=== PATIENT | female | born 2000 | race Two or more races ===

== ENCOUNTER 2022-04-01 11:24 | Outpatient (CLI) | payer OTHER | END 2022-04-01 14:49 | disposition home or self-care (01) | LOC: PRENATAL 11:24 | PROVIDERS: ATTEND Obstetrics & Gynecology Maternal & Fetal Medicine | DX: O35.9XX0 Maternal care for (suspected) fetal abnormality and damage, unspecified, not applicable or unspecified (principal); O35.3XX0 Maternal care for (suspected) damage to fetus from viral disease in mother, not applicable or unspecified; Z3A.20 20 weeks gestation of pregnancy ==

== ENCOUNTER 2022-05-11 12:49 | Outpatient (CLI) | payer OTHER | END 2022-05-12 10:51 | disposition home or self-care (01) | LOC: OBS/DEL 12:49 | PROVIDERS: ATTEND Obstetrics & Gynecology | DX: O26.892 Other specified pregnancy related conditions, second trimester (principal); Z3A.25 25 weeks gestation of pregnancy; E16.1 Other hypoglycemia ==

== ENCOUNTER 2022-05-28 21:59 | Emergency (ER) | payer OTHER ==
[~2022-05-28] VITALS: Ht 160 cm; Wt 70.8 kg
== END 2022-05-29 03:10 | disposition home or self-care (01) ==
LOC: ER 21:59
DX: O26.893 Other specified pregnancy related conditions, third trimester (principal); Z3A.28 28 weeks gestation of pregnancy; G44.209 Tension-type headache, unspecified, not intractable

== ENCOUNTER 2022-07-22 22:33 | Outpatient (CLI) | payer OTHER | END 2022-07-23 10:59 | disposition home or self-care (01) | LOC: OBS/DEL 22:33 | PROVIDERS: ATTEND Obstetrics & Gynecology | DX: O36.8130 Decreased fetal movements, third trimester, not applicable or unspecified (principal); O41.03X0 Oligohydramnios, third trimester, not applicable or unspecified; Z3A.36 36 weeks gestation of pregnancy ==

== ENCOUNTER 2022-08-09 15:30 | Inpatient (IN) | payer OTHER ==
[~2022-08-09] VITALS: Ht 160 cm; Wt 74.4 kg
[2022-08-17] MEDS ORDERED: PRENATAL CAPLE1 EAC1 PO (09:19)
== END 2022-08-19 12:27 | disposition home or self-care (01) | DRG 807 ==
LOC: LDR 08-17 07:29 → OB/GYN 08-17 15:30
PROVIDERS: ADMIT Obstetrics & Gynecology; ATTEND Obstetrics & Gynecology
PROC: 10E0XZZ Delivery of Products of Conception, External Approach (ICD-10-PCS; principal; 2022-08-17)
PROC: 0KQM0ZZ Repair Perineum Muscle, Open Approach (ICD-10-PCS; 2022-08-17)
PROC: 4A1HXCZ Monitoring of Products of Conception, Cardiac Rate, External Approach (ICD-10-PCS; 2022-08-17)
DX: O70.1 Second degree perineal laceration during delivery (principal); Z37.0 Single live birth; O99.824 Streptococcus B carrier state complicating childbirth; Z3A.39 39 weeks gestation of pregnancy; Z20.822 Contact with and (suspected) exposure to COVID-19

== ENCOUNTER 2023-01-09 21:41 | Emergency (ER) | payer OTHER ==
[~2023-01-09] VITALS: Ht 160 cm; Wt 68.5 kg
[~2023-01-09 21:41] MED LIST: PRENATAL CAPLE1 EAC1 PO
[2023-01-10] MEDS ORDERED: ZITHROMAX500 MG PO (00:01)
== END 2023-01-10 00:08 | disposition home or self-care (01) ==
LOC: ER 21:41
PROVIDERS: General Practice
DX: B34.9 Viral infection, unspecified (principal); R10.9 Unspecified abdominal pain; Z20.822 Contact with and (suspected) exposure to COVID-19

== ENCOUNTER 2024-08-23 08:44 | Outpatient (CLI) | payer OTHER ==
[~2024-08-23 08:44] MED LIST changes: +ZITHROMAX500 MG PO
== END 2024-08-23 08:47 | disposition home or self-care (01) ==
LOC: PRENATAL 08:44
PROVIDERS: ATTEND Obstetrics & Gynecology Maternal & Fetal Medicine
DX: O36.80X0 Pregnancy with inconclusive fetal viability, not applicable or unspecified (principal); O26.859 Spotting complicating pregnancy, unspecified trimester; O26.899 Other specified pregnancy related conditions, unspecified trimester; Z3A.09 9 weeks gestation of pregnancy

== ENCOUNTER 2024-09-12 14:20 | Outpatient (CLI) | payer OTHER | END 2024-09-12 14:23 | disposition home or self-care (01) | LOC: PRENATAL 14:20 | PROVIDERS: ATTEND Obstetrics & Gynecology Maternal & Fetal Medicine | DX: O36.80X0 Pregnancy with inconclusive fetal viability, not applicable or unspecified (principal); Z36.82 Encounter for antenatal screening for nuchal translucency; Z14.8 Genetic carrier of other disease; Z3A.12 12 weeks gestation of pregnancy ==

== ENCOUNTER → 2024-11-05 09:37 | Outpatient (CLI) | payer OTHER | END | disposition home or self-care (01) | LOC: PRENATAL 09:37 | PROVIDERS: ATTEND Obstetrics & Gynecology Maternal & Fetal Medicine | DX: O44.00 Complete placenta previa NOS or without hemorrhage, unspecified trimester (principal); O28.3 Abnormal ultrasonic finding on antenatal screening of mother; Z3A.20 20 weeks gestation of pregnancy ==

== ENCOUNTER → 2025-01-01 10:05 | Outpatient (CLI) | payer OTHER | END | disposition home or self-care (01) | LOC: PRENATAL 10:05 | PROVIDERS: ATTEND Obstetrics & Gynecology Maternal & Fetal Medicine | DX: O26.849 Uterine size-date discrepancy, unspecified trimester (principal); O28.3 Abnormal ultrasonic finding on antenatal screening of mother; Z3A.28 28 weeks gestation of pregnancy ==

== ENCOUNTER 2025-03-14 14:15 | Inpatient (IN) | payer OTHER ==
[~2025-03-14] VITALS: Ht 160 cm; Wt 3.2 kg
[2025-03-19 08:39] VITALS: BP 114/75
[2025-03-19 08:48] VITALS: BP 114/72
[2025-03-19 09:15] VITALS: BP 108/71
[2025-03-19] MEDS ORDERED: OXYTOCIN 500 ML IV SCH (09:15)
[2025-03-19] MEDS ORDERED: RINGERS SOLUTION,LACTATED 1,000 ML IV SCH (09:15)
[2025-03-19] MEDS ORDERED: MORPHINE SULFATE 4 MG/ML CARTRIDGE IV ONE (09:15)
[2025-03-19 09:35] LABS: BASO % 0.5 % (0.1-1.2); EOS # 0.27 (0.04-0.54); EOS % 2.4 % (0.7-7.0); LYMPH # 2.71 (1.18-3.74); LYMPH % 24.4 % (19.3-53.1); MEAN PLATELET VOLUME 11.90 fl (9.4-12.4); MONO # 0.57 (0.24-0.82); MONO % 5.1 % (4.7-12.5); NEUT # 7.46 (1.56-6.13); NEUT % 67.2 % (34.0-71.1); RED CELL DISTRIBUTION WIDTH 13.2 % (11.6-14.4)
[2025-03-19 09:50] LABS: URINE APPEARANCE Clear; URINE BILIRRUBIN Negative (NEGATIVE); URINE BLOOD Negative; URINE COLOR Yellow; URINE GLUCOSE Negative (NEGATIVE); URINE KETONE Trace (NEGATIVE); URINE LEUKOCYTE Negative; URINE NITRATE Negative; URINE PROTEIN Negative (NEGATIVE); URINE UROBILINOGEN 0.2 E.U./dl
[2025-03-19 09:56] LABS: URINE BACTERIA 1547.7 uL (0.0-1933); URINE EPITHELIAL CELLS 29.8 uL (0.0-38.8); URINE RBC 4.1 uL (0.0-20.8); URINE WBC 15.2 uL (0.0-23.2)
[2025-03-19 10:02] LABS: URINE CAST 0.14 uL (0.0-1.40)
[2025-03-19 10:03] LABS: INR 1.01
[2025-03-19 12:25] VITALS: BP 120/61
[2025-03-19 15:40] VITALS: BP 129/69
[2025-03-19] MEDS ORDERED: OXYTOCIN 10 UNITS/ML VIAL ONE (20:09)
[2025-03-19] MEDS ORDERED: ERYTHROMYCIN BASE OPHT 1GM EACH TUBE OP ONE (20:10)
[2025-03-19] MEDS ORDERED: CEFAZOLIN SODIUM 1,000 MG VIAL ONE (20:18)
[2025-03-20] MEDS ORDERED: MORPHINE SULFATE 4 MG/ML VIAL IV SCH (01:00)
[2025-03-20] MEDS ORDERED: KETOROLAC TROMETHAMINE 60 MG VIAL IM ONE (03:00)
[2025-03-20 04:03] VITALS: BP 109/73
[2025-03-20] MEDS ORDERED: OxyCODONE HCL 5 MG TABLET (ROXICODONE) PO SCH (05:00)
[2025-03-20 07:33] LABS: BASO % 0.2 % (0.1-1.2); EOS # 0.04 (0.04-0.54); EOS % 0.3 % (0.7-7.0); LYMPH # 2.12 (1.18-3.74); LYMPH % 16.4 % (19.3-53.1); MEAN PLATELET VOLUME 12.00 fl (9.4-12.4); MONO # 0.67 (0.24-0.82); MONO % 5.2 % (4.7-12.5); NEUT # 10.04 (1.56-6.13); NEUT % 77.5 % (34.0-71.1); RED CELL DISTRIBUTION WIDTH 13.0 % (11.6-14.4)
[2025-03-20 08:00] VITALS: BP 98/63
[2025-03-20] MEDS ORDERED: PNV,CALCIUM 72/IRON/FOLIC ACID 1 TAB TABLET PO SCH (09:00)
[2025-03-20] MEDS ORDERED: DOCUSATE SODIUM 100MG CAP PO SCH (09:00)
[2025-03-20] MEDS ORDERED: SIMETHICONE 125 MG CAPSULE PO SCH (09:00)
[2025-03-20 16:36] VITALS: BP 103/68
[2025-03-21] VITALS: BP 90/60
[2025-03-21 08:00] VITALS: BP 113/79
== END 2025-03-21 17:16 | disposition home or self-care (01) | DRG 785 ==
LOC: LDR 03-19 07:45 → OB/GYN 03-19 07:45 → LDR 03-19 14:15 → OB/GYN 03-20 00:01
PROVIDERS: ADMIT Obstetrics & Gynecology; ATTEND Obstetrics & Gynecology
PROC: 0UB70ZZ Excision of Bilateral Fallopian Tubes, Open Approach (ICD-10-PCS; 2025-03-19)
PROC: 4A1HXCZ Monitoring of Products of Conception, Cardiac Rate, External Approach (ICD-10-PCS; 2025-03-19)
PROC: 10D00Z1 Extraction of Products of Conception, Low, Open Approach (ICD-10-PCS; principal; 2025-03-19 20:45)
DX: O82 Encounter for cesarean delivery without indication (principal); O33.8 Maternal care for disproportion of other origin; Z30.2 Encounter for sterilization; Z3A.39 39 weeks gestation of pregnancy; Z37.0 Single live birth